=== PATIENT | female | born 2000 | race Caucasian/White ===

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

== ENCOUNTER → 2022-04-01 11:11 | Outpatient (CLI) | payer OTHER, SELFPAY ==
--- NOTE | 2022-04-01 11:12 | DI.US.S_ITS ---
PROCEDURE: US PELVIC COMPLETE INDICATIONS: IUD placement TECHNIQUE: Real-time scanning was performed of the pelvic organs, with image documentation. Additional endovaginal scanning was necessary due to incomplete visualization of the adnexal and endometrial structures by transabdominal scanning. COMPARISON: [facility], US, US PELVIC COMPLETE, 05/20/2021, 9:28. [facility], US, US PELVIC COMPLETE, 11/06/2019, 11:39. [facility], US, US PELVIC COMPLETE, 08/24/2019, 15:17. [facility], CT, CT ABDOMEN PELVIS W CON, 07/29/2021, 14:21. FINDINGS: Uterus: The uterus is normal in size at 8.9 x 2.7 x 2.8 cm. The IUD is seen at its expected location. The IUD itself obscures visualization of the endometrial stripe, which does not appear thickened. Ovaries: The right ovary measures 3.5 x 2 x 3 cm. The left ovary measures 3.2 x 2 x 1.6 cm. The ovaries have a normal sonographic appearance. Less than 12 follicles can be seen involving each ovary. No adnexal masses are seen. Normal appearing arterial waveforms are confirmed to each ovary. Other: No pathologic free abdominal or pelvic fluid. IMPRESSION: The IUD is seen at its expected location. We strive to produce accurate, complete, and clear reports of imaging services. To assist us in improving patient care, this report was composed using standard report templates and voice recognition software. Therefore, it may contain abnormal punctuation, insertions and/or omissions. Occasional wrong-word or sound-alike substitutions may occur. Though we review the report and make efforts to correct it, we do recommend that the report be read carefully in proper context to recognize any text inaccuracies. Dictated by: Jake Nichole M.D. on 04/01/2022 at 12:28 Approved by: Jake Nichole M.D. on 04/01/2022 at 12:29
== END ==
LOC: US 11:12
PROVIDERS: PCP Family Medicine; Referring Provider Obstetrics & Gynecology; Visit Provider Obstetrics & Gynecology
DX: R10.2 Pelvic and perineal pain (principal); Z97.5 Presence of (intrauterine) contraceptive device
CPT/HCPCS: 76856

== ENCOUNTER → 2023-02-02 11:13 | Outpatient (CLI) | payer OTHER, SELFPAY | PROVIDERS: PCP Family Medicine; Visit Provider Physician Assistant | DX: R30.0 Dysuria (principal) | CPT/HCPCS: 87077; 87086; 87186 ==

== ENCOUNTER → 2023-03-03 18:47 | Outpatient (CLI) | payer OTHER, SELFPAY ==
--- NOTE | 2023-03-03 | DI.MRI.S_ITS ---
PROCEDURE: MR ORBITS FACE NECK WO/W CON INDICATIONS: 22-year-old female with papilledema TECHNIQUE: Noncontrast sagittal T1 spin echo, axial FLAIR, axial gradient echo, axial diffusion and ADC acquired through the brain. Coronal STIR, thin-slice axial T1 spin echo through the orbits. After the administration of contrast, thin-slice axial and coronal T1 spin echo with fat saturation through the orbits, axial and coronal and sagittal T1 spin echo with fat saturation through the brain. COMPARISON: None. FINDINGS: Image quality: Excellent. Orbits: Globes are symmetrical and appropriate in shape. There is CSF distension of the optic nerve sheath, and the optic nerve sheath diameter at 3 mm posterior to the globe measures 7.8 mm. Optic nerve itself is unremarkable. Otherwise, no retrobulbar masses or fat abnormalities. The extra-ocular muscles are normal and symmetric in appearance. Lacrimal glands are normal. Optic chiasm is normal. Periorbital soft tissues appear normal. CSF spaces: Ventricles are normal in size and shape. Basal cisterns are patent. No extra-axial fluid collections. Brain: No intracranial bleeds or mass effects. No abnormal intracranial enhancement. Foote-white matter interface is intact. Diffusion weighted images demonstrate no acute infarct. Pituitary gland appears normal, without sellar or suprasellar masses. Brainstem appears normal. Normal intravascular flow voids are present. Skull and face: Calvarial marrow is normal in signal. Sinuses: Sinuses and mastoids are clear. IMPRESSION: Optic nerve sheath distension, consistent with given history of papilledema and increased intracranial pressure. Otherwise unremarkable MRI of the brain and orbits Approved by: Mike Mccray M.D. on 03/04/2023 at 10:26
--- NOTE | 2023-03-03 | DI.MRI.S_ITS ---
PROCEDURE: MR VENOGRAPHY HEAD WO CON COMPARISON: [facility], MR, MR ORBITS FACE NECK WO/W CON, 03/03/2023, 19:09. 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 Small reactive and granulations noted. The sigmoid and left jugular vein are patent. Additionally, there is a focal stenosis involving the mid right transverse sinus noted as well, with probable filling defect noted on the concurrent MRI. No evidence of complete occlusion, and the distal right transverse sinus, sigmoid and jugular vein are widely patent. Otherwise, the superior inferior sagittal sinus is within normal limits. Internal cerebral veins, vein of Dave and straight sinus are also normal. 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 Approved by: Mike Mccray M.D. on 03/04/2023 at 11:49
== END ==
PROVIDERS: PCP Family Medicine; Referring Provider Optometrist; Visit Provider Optometrist
DX: H47.11 Papilledema associated with increased intracranial pressure (principal); I67.6 Nonpyogenic thrombosis of intracranial venous system
CPT/HCPCS: 70543; 70544; A9579

== ENCOUNTER → 2025-04-17 12:39 | Outpatient (CLI) | payer OTHER, SELFPAY ==
[2025-04-17 15:33] LABS: HIV 1 & 2 Ab/Ag 4th Gen Combo NEGATIVE (NEGATIVE); Hep C Virus Ab w/Reflex Quant NEGATIVE s/c (NEGATIVE)
== END ==
PROVIDERS: PCP Family Medicine; Referring Provider Family Medicine; Visit Provider Obstetrics & Gynecology
DX: Z20.2 Contact with and (suspected) exposure to infections with a predominantly sexual mode of transmission (principal)
CPT/HCPCS: 86592; 86803; 87350; 87389